=== PATIENT | male | born 1975 | race Two or more races ===

== ENCOUNTER 2025-04-23 09:50 | Day surgery (SDC) | payer MEDICAID, SELFPAY ==
[2025-04-22 15:03] VITALS: BMI 24.4
[2025-04-23] VITALS (7 sets, daily range): BP systolic 108–139; BP diastolic 74–91; PULSE 67–90; RESP 13–19; TEMP 36.3–36.8; O2SAT 95–100
[2025-04-23] MEDS: fentaNYL CIT INJ 50 mCg/ML AMP 2ML (ASD USE ONLY) IVP (12:05)
[2025-04-23] MEDS: MIDAZOLAM INJ 1 MG/ML VIAL 2 ML (ASD USE ONLY) 2 MG IVP (12:05)
[2025-04-23] MEDS: RINGERS LACTATED 1000 ML 1,000 ML 125 ML IV (12:05)
== END 2025-04-23 13:05 | disposition home or self-care (01) ==
PROVIDERS: PCP Family Medicine; Referring Provider Internal Medicine Gastroenterology; Visit Provider Internal Medicine Gastroenterology
PROC: 0DBE8ZX Excision of Large Intestine, Via Natural or Artificial Opening Endoscopic, Diagnostic (ICD-10-PCS; CPT 45380; principal; 2025-04-23 11:15)
DX: K92.1 Melena (principal); R10.84 Generalized abdominal pain; I10 Essential (primary) hypertension; E88.810 Metabolic syndrome
CPT/HCPCS: 45378; A4649; J1200; J2250; J3010; J7120